=== PATIENT | female | born 1985 | race American Indian/Alaskan Native ===

== ENCOUNTER 2021-12-03 00:30 | Emergency (ER) | payer OTHER ==
[~2021-12-03] VITALS: Ht 149.9 cm; Wt 63.5 kg
[2021-12-03 00:45] VITALS: BP 153/113
--- NOTE | 2021-12-03 00:48 | NUR ---
TO LOBBY A/W BED AMBULATORY
[2021-12-03] MEDS ORDERED: AMOX500C25 PO (01:40)
[2021-12-03] MEDS ORDERED: IBUP-2218 PO (01:41)
[2021-12-03] MEDS: AMOXICILLIN 500 MG CAP PO ONE (02:26)
[2021-12-03] MEDS: IBUPROFEN 800 MG TAB PO ONE (02:27)
--- NOTE | 2021-12-03 03:46 | NUR ---
Patient discharged with v/s stable. Written and verbal after care instructions given and explained. Patient alert, oriented and verbalized understanding of instructions. Ambulatory with steady gait. All questions addressed prior to discharge. ID band removed. Patient advised to follow up with PMD. Rx of AMOXICILLIN AND MOTRIN given. Patient educated on indication of medication including possible reaction and side effects. Opportunity to ask questions provided and answered.
== END 2021-12-03 03:46 | disposition home or self-care (01) ==
LOC: MED 00:30 → EDBD 00:30 → MED 03:46
DX: H66.91 Otitis media, unspecified, right ear (principal)
CPT/HCPCS: 99283